=== PATIENT | female | born 1965 | race Caucasian/White ===

== ENCOUNTER 2017-11-05 19:22 | Inpatient (IN) | payer MEDICARE, MEDICAID ==
[2017-11-05 20:12] LABS: #Basophils 0.1 thou/uL (0.0-0.2); #Eosinphils 0.1 thou/uL (0.0-0.7); #Lymphocytes 2.8 thou/uL (1.20-3.40); #Monocytes 0.7 thou/uL (0.11-0.59); %Eosinophils 1.5 % (0.0-10.0); %Lymphocytes 28.4 % (21.0-51.0); %Monocytes 7.6 % (0.0-10.0); %Neutrophils 61.5 % (42.0-75.0); Hemoglobin 7.2 g/dL (12.0-16.0); Mean Corpuscular HGB CONC 32.8 g/dL (32.0-36.0); Mean Corpuscular Hemoglobin 33.3 pg (27.0-31.0); Mean Platelet Volume 9.9 fL (7.4-10.4); Platelet Count 207 thou/uL (130-400); RBC Distribution Width 13.7 % (11.5-14.5); Red Blood Cell (RBC) Count 2.17 mill/uL (4.20-5.40); White Blood Cell (WBC) Count 9.7 thou/uL (4.8-10.8)
--- NOTE | 2017-11-05 20:23 | RAD ---
FRONTAL VIEW CHEST: INDICATIONS: Syncope. COMPARISON: 07/12/2013 FINDINGS: The lungs are clear. There is no effusion or pneumothorax. The cardiac silhouette is normal in size for the portable technique. IMPRESSION: No focal consolidation. POS: [facility]
[2017-11-05 20:28] LABS: ALT (SGPT) 26 U/L (8-55); AST (SGOT) 20 U/L (5-34); Albumin 3.8 g/dL (3.5-5.0); Alkaline Phosphatase 62 U/L (40-150); Anion Gap 11 mmol/L (10-20); BUN (Urea Nitrogen) 9 mg/dL (9.8-20.1); Bilirubin, Total 0.6 mg/dL (0.2-1.2); Calc. Creatinine Clearance 0 mL/min (70-130); Carbon Dioxide 24 mmol/L (22-29); Chloride 108 mmol/L (98-107); Estimated GFR-MDRD 84; Globulin 2.4 g/dL (2.4-3.5); Glucose 134 mg/dL (70-105); Potassium 3.6 mmol/L (3.5-5.1); Protein, Total 6.2 g/dL (6.0-8.3); Sodium 139 mmol/L (136-145)
[2017-11-05 20:31] LABS: CKMB 0.8 ng/mL (0-6.6); Troponin I Less than 0.010 ng/mL (< 0.028)
[2017-11-05 20:41] LABS: INR-International Normal Ratio 1.2; PTT 24.7 SEC (22.9-36.1); Prothrombin Time 14.8 SEC (12.0-14.7)
[2017-11-05 21:02] LABS: Bilirubin Small (Negative); Blood, Urine Moderate (Negative); Clarity TURBID (Clear); Glucose, Urine (Dipstick) Negative (Negative); Leukocyte Large (Negative); Nitrite Negative (Negative); Protein, Urine (Dipstick) Trace mg/dL (Neg-Trace); Specific Gravity, Urine 1.021 (1.002-1.036); Urobilinogen 0.2 mg/dL (0.2-1.0); pH, Urine 5.5 (5.0-9.0)
[2017-11-05 21:04] LABS: Bacteria/HPF 4+ HPF (None Seen); Squamous Epithelial 0-3 HPF (0-3); Yeast-AUWi Flag 8.3 (0-25.0)
[2017-11-05 21:05] LABS: Pathc Cast-AUWi Flag 4.78 (0-2.49)
[2017-11-05 21:07] LABS: Hyaline Casts/LPF 0-3 HYALINE CAST LPF (0-3 Hyaline)
--- NOTE | 2017-11-05 21:44 | ULT ---
PELVIC ULTRASOUND: INDICATIONS: Vaginal bleeding. Pelvic pressure and pain. TECHNIQUE: Carlin-scale and Doppler color-flow imaging of the pelvis is performed. Transvaginal/transabdominal ultrasound. FINDINGS: There is a heterogeneous appearance of the endometrium, which is approximately 6 mm in thickness. As the patient reports no prior menses for four years, this is considered abnormal. The uterus demonst rates a generalized heterogeneous echotexture. The ovaries are not visualized. No significant free pelvic fluid. There is mild distention of the imaged portions of the urinary bladder. A focal region of increased echogenicity of the dependent portion of the urinary bladder is present. IMPRESSION: 1. Heterogeneous uterus and a thickened, heterogeneous endometrium. Recommend clinical correlation, as endometrial carcinoma is a diagnosis of exclusion. 2. Focal area of increased echogenicity of the mildly distended urinary bladder. This could relate to sediment within the urinary bladder, although the possibility of a soft tissue mass is not exclude d. Recommend followup with cystoscopy to exclude the possibility of an underlying bladder mass. CODE T POS: [facility]
--- NOTE | 2017-11-05 21:48 | RAD ---
LEFT FOREARM TWO VIEWS: HISTORY: Syncope. COMPARISON: None. FINDINGS: No fracture. No cortical irregularity or periosteal reaction. IMPRESSION: No fracture. POS: [facility]
--- NOTE | 2017-11-05 21:49 | RAD ---
LEFT HUMERUS TWO VIEWS: HISTORY: Syncope. COMPARISON: None. FINDINGS: No fracture. No cortical irregularity or periosteal reaction. IMPRESSION: No fracture. POS: [facility]
--- NOTE | 2017-11-05 21:52 | RAD ---
LEFT WRIST THREE VIEWS: HISTORY: Syncope. Pain. FINDINGS: Intercarpal and radial carpal joint spaces appear to be preserved. With regard to the carpal bones, there questionable irregularity involving the triquetral bone. Yenifer elate for point tenderness. IMPRESSION: Possible triquetral bone fracture. Correlate for point tenderness. POS: [facility]
--- NOTE | 2017-11-05 21:53 | RAD ---
LEFT ELBOW THREE VIEWS: HISTORY: Trauma. Syncope. FINDINGS: No significant joint effusion. No fracture. No cortical irregularity or periosteal reaction. IMPRESSION: No posttraumatic change. POS: [facility]
[2017-11-06] MEDS ORDERED: Acetaminophen 650 MG Suppository PR PRN (00:29)
[2017-11-06] MEDS ORDERED: Ondansetron ODT 4 MG TAB PO PRN (00:29)
[2017-11-06] MEDS ORDERED: Acetaminophen 325 MG TAB PO PRN (00:29)
[2017-11-06] MEDS ORDERED: Zolpidem Tartrate 5 MG TAB PO PRN (00:29)
[2017-11-06] MEDS: Tranexamic Acid 650 MG TAB PO SCH ×5 (00:57→19:55)
[2017-11-06] MEDS: Sodium Chloride 0.9% 1,000 ML IV SCH ×2 (00:58→09:31)
[2017-11-06] MEDS: medroxyPROGESTERone Acetate 5 MG TAB PO SCH ×4 (01:29→19:54)
--- NOTE | 2017-11-06 01:35 | HP ---
DATE OF ADMISSION: 11/05/2017 REASON FOR ADMISSION: Anemia secondary to dysfunctional uterine bleeding. HISTORY OF PRESENT ILLNESS: Ms. Javier is a 52-year-old 3, para 2, AB 1, who underwent a D a nd C by myself in September. She is morbidly obese, wheelchair bound with multiple sclerosis and had un remarkable hysteroscopy and benign pathology. However, post D and C, the patient is continued to ble ed. She was seen by myself at [facility] 4 days ago and started back on Provera at a dose of 20 mg b.i.d. She reports she has been taking this, but has continued to bleed. The patie nt is being referred to Dr. Alexandra Hull, Gynecologic Oncology at [facility] in [place] for hysterectomy, which was recommended by Dr. Hull as there is still some concern about occult malign jorge. The patient has not received an appointment from Dr. Hull yet. She reports that she became syn copal at home, fell out of her wheelchair and was transported by EMS. She denies chest pain, blurred vision or head trauma. [employer] HISTORY: Three pregnancies, 2 C-sections and 1 miscarriage. PAST MEDICAL HISTORY: Significant for multiple sclerosis, hypertension, overactive bladder, depressi on, migraines, obstructive sleep apnea and morbid obesity. PAST SURGICAL HISTORY: C-sections, gallstones, D and C with hysteroscopy. ALLERGIES: PENICILLIN, swelling and itching. MEDICATIONS: Include morphine, clonazepam, Lexapro, oxybutynin, calcium, ibuprofen, magnesium, nortr iptyline, Flonase, metoprolol, Colace, baclofen, Protonix and Provera. SOCIAL HISTORY: Denies tobacco, alcohol or IV drug abuse. FAMILY HISTORY: Noncontributory. REVIEW OF SYSTEMS: Noncontributory. PHYSICAL EXAMINATION: GENERAL: Morbidly obese white female, somewhat pale. VITAL SIGNS: Pulse 108, respirations 18, blood pressure 98/62, afebrile. HEENT: Within normal limits. LUNGS: Clear to auscultation bilaterally. HEART: Regular rhythm. ABDOMEN: Morbidly obese, soft, without rebound or guarding. Pelvic exam is deferred. Previous atte mpted pelvic exam had revealed the patient's cervix can only be visualized via speculum exam in the O R under general anesthesia. EXTREMITIES: Without clubbing, cyanosis or edema. On the perineum, there is no evidence that the bl eeding was rectal, not vaginal. IMAGING: Ultrasound in the office revealed a benign appearing uterus without endometrial mass or thi ckening. Ultrasound was canceled in the emergency room. Chest x-ray was negative. A 12-lead is pen ding and awaiting interpretation by emergency room physician. LABORATORY DATA: Hematocrit dropped from 35% on 09/24/2017 to 22% today with a hemoglobin of 7.2. T he patient does not have an elevated white count. Coags are within normal limits with slight elevati on of PT at 14.8. Metabolic panel is within normal limits. Her urinalysis reveals moderate blood, s mall bilirubin, large leukoesterase and greater than 50 wbc's. IMPRESSION: 1. Dysfunctional uterine bleeding of uncertain etiology with benign uterine pathology leading to acu te on chronic blood loss anemia. 2. Acute on chronic blood loss anemia. 3. Multiple sclerosis. 4. Obesity. 5. Deconditioning. 6. Urinary tract infection. 7. Hypertension. PLAN: The patient will be admitted to the hospital and receive blood transfusion. We will initiate Lysteda 1300 mg p.o. t.i.d. in combination with Provera 20 mg p.o. b.i.d. to achieve control of vagin al bleeding. We will consult [facility] for Internal Medicine issue management in the hospital. A nticipate the patient discharged home in 2 or 3 days with follow up with Dr. Alexandra Hull at [facility] in [place] for hysterectomy and definitive management of dysfunctional uterine bleeding .
[2017-11-06 03:11] VITALS: BMI 35.9
[2017-11-06] MEDS ORDERED: Cipro 250 MG TAB PO SCH (06:00)
[2017-11-06] MEDS: Baclofen 10 MG TAB PO SCH ×2 (07:24→19:53)
[2017-11-06] MEDS: Docusate 100 MG CAP PO SCH ×2 (07:25→19:55)
[2017-11-06] MEDS: Famotidine 20 MG TAB PO SCH ×2 (07:25→19:52)
--- NOTE | 2017-11-06 07:31 | PRG ---
DATE OF SERVICE: 11/06/2017 TIME OF SERVICE: 0700 The patient is resting comfortably in bed. She is receiving her second unit of PRBCs. By nursing bl eeding is down to level of mild to moderate. The patient is expressing interest in eating. PHYSICAL EXAMINATION: VITAL SIGNS: Temperature 97.8, respirations 18, pulse was 102. Blood pressure was 118/62. urine ou tput was good, clear urine was noted in the Giordano catheter. ABDOMEN: Soft and nontender, without rebound or guarding. EXTREMITIES: Without clubbing, cyanosis or edema. Of note, the patient has a stage I decubitus note d on admission. Wound Care will be consulted. IMPRESSION: 1. Dysfunctional uterine bleeding. 2. Acute anemia secondary to dysfunctional uterine bleeding. 3. Multiple medical conditions and deconditioning including multiple sclerosis, morbid obesity and h ypertension. 4. Stage I decubitus. PLAN: 1. Continue blood transfusion. 2. Continue Provera and Lysteda. 3. Check CBC at approximately noon today. 4. I will discuss the patient with Dr. Alexandra Hull at [facility] in [place]. Consider p ossible transfer to higher level of care for surgical management of her dysfunctional uterine bleedin g with suspected possible malignant or premalignant condition. 5. Decubitus care per Wound Care team. 6. Continue Cipro for UTI. Urine culture pending.
[2017-11-06] MEDS ORDERED: Oxybutynin 5 MG TAB PO SCH (09:00)
[2017-11-06] MEDS ORDERED: medroxyPROGESTERone Acetate 5 MG TAB PO SCH (09:00)
[2017-11-06] MEDS: Fluticasone Propionate Nasal Spray 16 gm Bottle NASAL SCH ×2 (09:18→19:55)
[2017-11-06 10:45] LABS: #Basophils 0.1 thou/uL (0.0-0.2); #Eosinphils 0.2 thou/uL (0.0-0.7); #Monocytes 0.5 thou/uL (0.11-0.59); #Neutrophils 4.1 thou/uL (1.40-6.50); %Basophils 0.7 % (0.0-1.0); %Eosinophils 2.7 % (0.0-10.0); %Monocytes 7.6 % (0.0-10.0); %Neutrophils 59.9 % (42.0-75.0); Hemoglobin 8.1 g/dL (12.0-16.0); Mean Corpuscular HGB CONC 31.6 g/dL (32.0-36.0); Mean Corpuscular Hemoglobin 30.2 pg (27.0-31.0); Mean Corpuscular Volume 95.7 fL (78.0-98.0); Mean Platelet Volume 9.9 fL (7.4-10.4); Platelet Count 125 thou/uL (130-400); RBC Distribution Width 15.3 % (11.5-14.5); Red Blood Cell (RBC) Count 2.66 mill/uL (4.20-5.40); White Blood Cell (WBC) Count 6.8 thou/uL (4.8-10.8)
--- NOTE | 2017-11-06 13:05 | PDOC.EVN ---
Event Note - Event Note Event Note: Transfer to Alexandra Hull arranged by Dr Rodgers for suspcicion for intrauterine (endometrial) malignancy vs other. Patent is s/p [address] Hull will be the workforce management consultant on the case. The transfer center has requested a physician to physician call, which I will do with the receiving site. DX: Multiple medical co-morbidities, suspicious endometrial mass vs other. HX negative D&C by Dr Rodgers one month ago
--- NOTE | 2017-11-06 14:03 | PDOC.PN ---
- Subjective Encounter Start Date: 11/06/17 Encounter Start Time: 14:01 Subjective: pt seen and examined/IM team consulted for medical management -: medical history reviewed w Pt -: currently feels well. No significant Vaginal bleed - Objective Resuscitation Status: Resuscitation Status FULL:Full Resuscitation MAR Reviewed: Yes Vital Signs & Weight: Vital Signs (12 hours) Temp Pulse Pulse Resp BP BP Pulse Ox 11/06/17 12:47 98.4 F 110 H 16 118/79 96 11/06/17 08:00 98.4 F 107 H 16 117/78 96 11/06/17 04:00 98.7 F 111 H 20 97/64 97 11/06/17 02:35 98.3 F 109 H 20 127/80 98 11/06/17 02:20 98.6 F 113 H 20 105/66 94 L Weight Admit Weight 196 lb 3 oz Weight 196 lb 3 oz I&O: 11/05/17 11/06/17 11/07/17 06:59 06:59 06:59 Intake Total 840 350 Output Total 750 Balance 90 350 Result Diagrams: 11/06/17 10:15 11/05/17 19:58 Additional Labs: Laboratory Tests 11/05/17 11/06/17 19:58 10:15 Hgb 7.2 L 8.1 L Phys Exam - Physical Examination Constitutional: NAD HEENT: PERRLA, moist MMs, sclera anicteric, oral pharynx no lesions Neck: no nodes, no JVD, supple, full ROM Respiratory: no wheezing, no rales, no rhonchi, clear to auscultation bilateral Cardiovascular: RRR, no significant murmur, no rub, irregular Gastrointestinal: soft, non-tender, no distention, positive bowel sounds Musculoskeletal: no edema, pulses present Neurological: non-focal, normal sensation chr paraparesis due to MS Psychiatric: normal affect, A&O x 3 Dx/Plan (1) Acute blood loss anemia Code(s): D62 - ACUTE POSTHEMORRHAGIC ANEMIA Status: Acute (2) UTI (urinary tract infection) Status: Acute Qualifiers: Urinary tract infection type: acute cystitis (3) DUB (dysfunctional uterine bleeding) Code(s): N93.8 - OTHER SPECIFIED ABNORMAL UTERINE AND VAGINAL BLEEDING Status : Acute Comment: Cont provera,Lysteda. (4) HTN (hypertension) Code(s): I10 - ESSENTIAL (PRIMARY) HYPERTENSION Status: Chronic (5) Multiple sclerosis Code(s): G35 - MULTIPLE SCLEROSIS Status: Chronic - Plan continue antibiotics, DVT proph w/SCDs Agree w transfer to tertiary center for higher level of care -: Increase Cipro dose for UTI. urine Cx sent.follow -: Recommend Urology input for possible Bladder mass. -: H/h stable post transfusion. recheck in am if in house -: home meds rebviewed. cont as below. HD stable.Will follow * . Review of Systems - Review of Systems Constitutional: weakness, malaise. negative: fever, chills, sweats, other ENT: negative: Ear Pain, Ear Discharge, Nose Pain, Nose Discharge, Nose Congestion, Mouth Pain, Mouth Swelling, Throat Pain, Throat Swelling, Other Respiratory: negative: Cough, Dry, Shortness of Breath, Hemoptysis, SOB with Excertion, Pleuritic Pain, Sputum, Wheezing Cardiovascular: negative: chest pain, palpitations, orthopnea, paroxysmal nocturnal dyspnea, edema, light headedness, other Gastrointestinal: negative: Nausea, Vomiting, Abdominal Pain, Diarrhea, Constipation, Melena, Hematochezia, Other Genitourinary: negative: Dysuria, Frequency, Incontinence, Hematuria, Retention , Other Musculoskeletal: negative: Neck Pain, Shoulder Pain, Arm Pain, Back Pain, Hand Pain, Leg Pain, Foot Pain, Other Neurological: negative: Weakness, Numbness, Incoordination, Change in Speech, Confusion, Seizures, Other - Medications/Allergies Allergies/Adverse Reactions: Allergies Allergy/AdvReac Type Severity Reaction Status Date / Time glatiramer (copolymer 1) Allergy Severe Anaphylaxis Verified 09/21/17 11:03 [From Copaxone] Penicillins Allergy Intermediate FACIAL Verified 09/21/17 11:03 SWELLING Latex, Natural Rubber Allergy Verified 11/06/17 03:11 Medications: Current Medications Acetaminophen (Tylenol) 650 mg PO Q4H PRN PRN Reason: Headache/Fever or Pain Acetaminophen (Tylenol) 650 mg UT Q4H PRN PRN Reason: Headache/Fever or Pain Baclofen (Lioresal) 20 mg PO BID [facility] Last Admin: 11/06/17 07:24 Dose: 20 mg Ciprofloxacin (Cipro) 500 mg PO 0600,2000 RADHA Clonazepam (Klonopin) 1 mg PO HS [facility] Docusate Sodium (Colace) 100 mg PO BID [facility] Last Admin: 11/06/17 07:25 Dose: 100 mg Escitalopram Oxalate (Lexapro) 20 mg PO HS [facility] Famotidine (Pepcid) 20 mg PO BID [facility] Last Admin: 11/06/17 07:25 Dose: 20 mg Fluticasone Propionate (Flonase Nasal [place]) 1 gm NASAL BID [facility] Last Admin: 11/06/17 09:18 Dose: Not Given Sodium Chloride (Normal Saline 0.9%) 1,000 mls @ 100 mls/hr IV .Q10H [facility] Last Admin: 11/06/17 09:31 Dose: Not Given Medroxyprogesterone Acetate (Provera) 20 mg PO BID [facility] Last Admin: 11/06/17 07:26 Dose: 20 mg Metoprolol Succinate (Toprol Xl) 25 mg PO [facility] Nortriptyline HCl (Pamelor) 25 mg PO [facility] Ondansetron HCl (Zofran Odt) 4 mg PO Q6H PRN PRN Reason: Nausea/Vomiting Oxybutynin Chloride (Ditropan) 5 mg PO DAILY [facility] Last Admin: 11/06/17 07:25 Dose: 5 mg Tranexamic Acid (Lysteda) 1,300 mg PO TID [facility] Last Admin: 11/06/17 07:25 Dose: 1,300 mg Triamcinolone Acetonide (Kenalog 0.5% Cream) 0 gm TOP DAILYPRN PRN PRN Reason: DERMATITIS Zolpidem Tartrate (Ambien) 5 mg PO HSPRN PRN PRN Reason: Insomnia
[2017-11-06 15:21] LABS: #Basophils 0.1 thou/uL (0.0-0.2); #Eosinphils 0.3 thou/uL (0.0-0.7); #Lymphocytes 2.4 thou/uL (1.20-3.40); #Monocytes 0.6 thou/uL (0.11-0.59); #Neutrophils 4.4 thou/uL (1.40-6.50); %Basophils 0.8 % (0.0-1.0); %Eosinophils 3.3 % (0.0-10.0); %Lymphocytes 31.4 % (21.0-51.0); %Monocytes 7.3 % (0.0-10.0); %Neutrophils 57.1 % (42.0-75.0); Hemoglobin 9.2 g/dL (12.0-16.0); Mean Corpuscular HGB CONC 33.9 g/dL (32.0-36.0); Mean Corpuscular Hemoglobin 32.2 pg (27.0-31.0); Platelet Count 141 thou/uL (130-400); RBC Distribution Width 15.8 % (11.5-14.5); Red Blood Cell (RBC) Count 2.86 mill/uL (4.20-5.40); White Blood Cell (WBC) Count 7.7 thou/uL (4.8-10.8)
[2017-11-06 19:45] VITALS: BP 108/80; TEMP 98.8
[2017-11-06] MEDS ORDERED: Ciprofloxacin 500 MG TAB PO SCH (20:00)
[2017-11-06] MEDS ORDERED: clonazePAM 1 MG TAB PO SCH (21:00)
[2017-11-06] MEDS ORDERED: Escitalopram Oxalate 20 mg Tablet PO SCH (21:00)
[2017-11-06] MEDS ORDERED: Nortriptyline HCl 25 MG CAP PO SCH (21:00)
== END 2017-11-06 20:40 | disposition short-term general hospital (02) | DRG 760 ==
LOC: ERS 19:22 → T4-B 21:30
PROVIDERS: ADMIT Obstetrics & Gynecology; ATTEND Obstetrics & Gynecology
PROC: 30233N1 Transfusion of Nonautologous Red Blood Cells into Peripheral Vein, Percutaneous Approach (ICD-10-PCS; principal; 2017-11-05)
DX: N93.8 Other specified abnormal uterine and vaginal bleeding (principal); N39.0 Urinary tract infection, site not specified; D62 Acute posthemorrhagic anemia; D50.0 Iron deficiency anemia secondary to blood loss (chronic); E66.01 Morbid (severe) obesity due to excess calories; Z99.3 Dependence on wheelchair; G35 Multiple sclerosis; I10 Essential (primary) hypertension; F32.9 Major depressive disorder, single episode, unspecified; G47.33 Obstructive sleep apnea (adult) (pediatric); L89.91 Pressure ulcer of unspecified site, stage 1
CPT/HCPCS: 36415; 36430; 71045; 76856; 80053; 81003; 81015; 82553; 83735; 83880; 84484; 85025; 85610; 85730; 86850; 86900; 86901; 87077; 87086; 87186; 90471; 90686; 93005; A4353; G0008; J1956; P9016

== ENCOUNTER 2018-10-03 08:58 | Outpatient (CLI) | payer MEDICARE, MEDICAID ==
--- NOTE | 2018-10-03 13:07 | MRI ---
Brain MRI with and without contrast: 10/03/2018 COMPARISON: 11/16/2014 HISTORY: Multiple sclerosis TECHNIQUE: Multiplanar multisequence MR imaging of the brain is obtained with and without contrast FINDINGS: There are numerous subcentimeter foci of increased T2 and FLAIR signal within the periventr icular, deep, and subcortical white matter, consistent with the patient's history of multiple sclerosis. There has been no significant interval change on the axial T2 or FLAIR imaging with regard to the white matter disease. Arterial flow voids at the axial level of the skull base appear grossly unremarkable on the T2-weight ed imaging. The visualized paranasal sinuses and mastoid air cells are well aerated. There is no midline shift, mass effect, or ventricular enlargement. The diffusion weighted imaging demonstrates no evidence for acute infarction. The axial gradient echo imaging demonstrates no evidence for intracranial hemorrhage. Postcontrast imaging demonstrates no abnormal enhancement within the brain parenchyma. IMPRESSION: Stable white matter disease consistent with the provided history of multiple sclerosis. N o enhancing lesions are seen to suggest the presence of active demyelination. Transcribed Date/Time: 10/03/2018 2:43 PM
--- NOTE | 2018-10-03 13:43 | MRI ---
MRI of the cervical spine with and without contrast: 10/03/2018 COMPARISON: None HISTORY: Multiple sclerosis TECHNIQUE: Multiplanar multisequence MR imaging of the cervical spine provided with and without contr ast FINDINGS: Sagittal STIR imaging demonstrates no focal area of osseous marrow edema. There is fluid in the region of the left facet joint at C5-6, degenerative in nature. There is degenerative change at the atlantoaxial interspace. No significant anterolisthesis or retrol isthesis is noted within the cervical spine. C2-3: Mild bilateral facet hypertrophy. Uncovertebral osteophyte formation noted on the left with mil d/moderate left neural foraminal stenosis. No significant central canal or right neural foraminal stenosis. C3-4: Disc space narrowing and disc desiccation. Facet and uncovertebral osteophyte formation on the left causes a moderate degree of neural foraminal stenosis. There is mild right neural foraminal stenosis. No significant central canal stenosis. C4-5: There is mild bilateral facet hypertrophy. There is disc desiccation. No significant central ca nal or neural foraminal stenosis. C5-6: There is disc space narrowing and disc desiccation with disc bulge. There is a prominent left p aracentral disc protrusion with significant canal stenosis laterally on the left. There is mild/moderate bilateral neural foraminal stenosis, left greater than right. C6-7: There is disc space narrowing and disc desiccation with mild disc bulge and mild central canal stenosis. Bilateral facet and uncovertebral osteophyte formation with mild/moderate bilateral neural foraminal stenosis. C7-T1: No significant central canal or neural foraminal stenosis. There are numerous areas of abnormal increased T2 signal within the cervical cord, consistent with de myelination on the basis of multiple sclerosis. There is abnormal signal intensity within the dorsal aspect of the mid cervical cord at the C1 level. There is increased signal intensity within th e lateral aspect of the cord to the left of midline at C3. Multiple small foci of abnormal signal intensity noted within the cervical cord at the C4 and C5 levels. Lateral T2 hyperintensity on the ri ght within the cervical cord at C5. The postcontrast imaging demonstrates no abnormal enhancement involving the cervical cord to suggest the presence of active demyelination. No abnormal enhancement is seen involving the imaged osseous structures or intervertebral disks. IMPRESSION: Multilevel cervical spine degenerative change. Evidence of abnormal T2 hyperintensity wit hin the cervical cord, consistent with demyelination. No abnormal enhancement is seen to suggest the presence of active demyelination. Transcribed Date/Time: 10/03/2018 2:41 PM
--- NOTE | 2018-10-03 13:48 | MRI ---
MRI of the thoracic spine with and without contrast: 10/03/2018 COMPARISON: None HISTORY: Multiple sclerosis TECHNIQUE: Multiplanar multisequence MR imaging of the thoracic spine obtained with and without contr ast FINDINGS: The sagittal STIR imaging demonstrates no focal area of osseous marrow edema. No anterolisthesis or retrolisthesis is evident within the thoracic spine. There is no significant central canal or neural foraminal stenosis noted within the thoracic spine. There is a tiny central disc protrusion at T3-4 with no associated central canal stenosis. There is a small right paracentral disc protrusion at T9-10 with no associated central canal stenosis. There is a subtle area of increased T2 signal intensity within the dorsal aspect of the thoracic cord at T8-9. There is a questionable subtle area of abnormal signal intensity within the central aspect of the cord and right aspect of the cord at T4-5. The postcontrast imaging demonstrates no abn ormal enhancement involving the contents of the thecal sac, the osseous structures, or the intervertebral discs. IMPRESSION: No significant central canal or neural foraminal stenosis seen within the thoracic spine. Questionabl e subtle abnormal signal intensity within the thoracic cord as detailed above. No abnormal enhancement seen to suggest the presence of active demyelination. Transcribed Date/Time: 10/03/2018 2:32 PM
--- NOTE | 2018-10-03 14:12 | MRI ---
Exam: MRI lumbar spine with and without contrast HISTORY: Multiple sclerosis. COMPARISON: None FINDINGS: Appropriate T1 marrow signal intensity of the lumbar vertebra. Lumbar spine vertebral body height is maintained. No fracture. No spondylolisthesis. No spondylolysis. No abnormal enhancement on post contrast images. Appropriate signal intensity of the paraspinal muscles Conus medullaris terminates at the inferior aspect of L1 T12-L1: No significant central canal stenosis or significant foraminal narrowing. L1-L2: No significant canal stenosis or significant foraminal narrowing L2-L3: No significant canal stenosis or significant foraminal narrowing L3-L4: No significant central canal stenosis or significant foraminal narrowing. Minimal ligament fla vum thickening and facet hypertrophy. L4-L5: Adequate disc hydration. No significant central canal stenosis or significant foraminal narrow ing L5-S1: Desiccation without significant loss of disc space height. Generalized disc bulge does not cau se any mass effect upon the thecal sac. There is left greater than right facet hypertrophy. Moderate bilateral foraminal disc material and posterior element hypertrophy. There is no abnormal enhancement with regards to the cauda equina and conus medullaris IMPRESSION: 1. No abnormal enhancement within the central spinal canal 2. No significant central canal stenosis. Moderate bilateral foraminal and L5-S1 Transcribed Date/Time: 10/03/2018 2:34 PM
== END 2018-10-03 08:59 | disposition home or self-care (01) ==
LOC: MRI 08:58
PROVIDERS: ATTEND Nurse Practitioner Acute Care
DX: G35 Multiple sclerosis (principal); M47.812 Spondylosis without myelopathy or radiculopathy, cervical region
CPT/HCPCS: 70553; 72156; 72157; 72158

== ENCOUNTER 2019-11-06 11:58 | Outpatient (CLI) | payer MEDICARE, MEDICAID ==
--- NOTE | 2019-11-06 18:02 | MRI ---
BRAIN MRI WITH AND WITHOUT CONTRAST: COMPARISON: 10/03/2018. HISTORY: Multiple sclerosis. FINDINGS: No evidence of hemorrhage on the axial gradient echo sequence. Appropriate T1 marrow signal intensity of the calvarium. Midline brain parenchymal structures have a normal appearance. No parenchymal mass, mass effect, or midline shift. Age-appropriate brain volume. Redemonstration o f T2 and FLAIR white matter hyperintensities consistent with the patient's history of multiple sclero sis. There are stable T2 and FLAIR hyperintensities involving the medial left frontal cortex. The o verall degree and distribution of the abnormal white matter hyperintensities, is unchanged. Central arterial flow voids are maintained. Absent restricted diffusion. Adequate aeration of the visualized paranasal sinuses and mastoid air cells. No pathologic enhancement of the brain parenchyma. No MRI evidence of an actively demyelinating plaque. IMPRESSION: Essentially stable multifocal T2 and FLAIR white matter hyperintensities. Distribution is consistent with the patient's history of multiple sclerosis. There are no plaques that have enhancement or res tricted diffusion to suggest an active demyelinating plaque. POS: [facility]
--- NOTE | 2019-11-06 18:10 | MRI ---
MRI CERVICAL SPINE WITH AND WITHOUT CONTRAST: COMPARISON: 10/03/2018. HISTORY: Multiple sclerosis. FINDINGS: Appropriate T1 marrow signal intensity of the cervical vertebrae. Vertebral body heights are maintai silke. There is no fracture. Stable type II Modic change at C6-C7. There is osteophyte formation at C5-C6 and C6-C7. Post contrast images demonstrate a partially enhancing hemangioma at T1, unchanged. No pathologic enhancement of the vertebral bodies. There is no significant STIR hyperintensity to suggest vertebral body edema or ligamentous injury. There is straightening of cervical lordosis. Spondylolisthesis: 1 mm of anterolisthesis of C4 upon C5. 1.2 mm of anterolisthesis of C5 upon C6. C2-C3: No significant central canal stenosis. Mild to moderate right foraminal narrowing due to unc overtebral and facet hypertrophy. Severe left foraminal narrowing due to uncovertebral hypertrophy. Degree of left foraminal stenosis is unchanged. C3-C4: Desiccation with mild loss of disk space height. Broad-based disk-osteophyte complex with mi ld central canal stenosis. Moderate to severe bilateral neural foraminal narrowing due to uncoverteb ral hypertrophy. C4-C5: Desiccation with mild loss of disk space height. Broad-based disk-osteophyte complex abuts t he thecal sac. Mild central canal stenosis. Moderate right neural foraminal narrowing. Patent left neural foramen. C5-C6: Desiccation with moderate to severe loss of disk space height. Redemonstration of a central/ left paracentral disk-osteophyte complex. There is mass effect upon the left hemicord. At least mil d to moderate stenosis of the left aspect of the central spinal canal. Mild bilateral neural foramin al narrowing. C6-C7: Disk desiccation. Broad-based disk-osteophyte complex. Mild central canal stenosis. Mild r ight neural foraminal narrowing. Patent neural foramen. C7-T1: No significant central canal stenosis. Neural foramina are patent. There are T2 hyperintensities involving the cervical cord at the C2-C3 disk space, C3 vertebral body, C4 vertebral body, C4-C5 disk space, and the mid C7 level. There is no cord expansion or cord malac ia. Post contrast images do not demonstrate abnormal enhancement. There is evidence of a T2 hyperin tense lesion in the thoracic cord at the T1 level. IMPRESSION: Multifocal abnormal signal intensity in the cervical cord compatible with demyelinating plaques. No evidence of enhancement to suggest active demyelination. POS: [facility]
--- NOTE | 2019-11-06 18:41 | MRI ---
MRI OF THE THORACAIC SPINE WITH AND WITHOUT IV CONTRAST: Date: 11/06/2019 INDICATION: History of multiple sclerosis. COMPARISON: Prior MRI of the thoracic spine with and without contrast dated 10/03/2018. TECHNIQUE: Multiplanar, multisequence MR images were obtained of the thoracic spine with and without contrast ut ilizing 15 mL of MultiHance. FINDINGS: The degree of motion artifact particularly on the postcontrast series limits image detail. There is a T2 hyperintense, heterogeneous T1 signal intensity oval lesion within the left aspect of T 1 which demonstrates a stippled trabecular appearance on the axial images with mild postcontrast enha ncement that is stable to the prior exam, likely reflecting slightly atypical hemangioma. The subtle area of suggested increased T2 signal along the dorsal aspect of the spinal cord at T8-T9 on the prior examination is not replicated on the current examination. There is a very small focus of white matter signal abnormality in the anterior midline spinal cord th at is seen on image 44 of series 11 which may be artifactual in nature. No definite region of abnorma l enhancement is noted within this region. This is seen at the T9 vertebral level. Small right paracentral protrusions at T9-T10, T10-T11, and T11-T12 are stable. No appreciable centra l canal or neural foraminal narrowing is evident. No additional focus of abnormal enhancement is demo nstrated. IMPRESSION: 1. Small subtle regions of T2 hyperintensity suspected at the T8-T9 level along the dorsal aspect of the thoracic cord is not reproduced on the current examination. However, there is a new focus of inc reased T2 signal involving the anterior aspect of the spinal cord at T9, which was not definitely pre sent on the prior examination. No abnormal enhancement is seen within this location. This may reflect a interval new but not necessarily active MS plaque. 2. Mild spondylosis of the thoracic spine without appreciable central canal or neural foraminal narr owing. 3. Persistent suspected atypical hemangioma within the left aspect of T1. POS: [facility]
== END 2019-11-06 11:59 | disposition home or self-care (01) ==
LOC: MRI 11:58
PROVIDERS: ATTEND Nurse Practitioner Acute Care
DX: G35 Multiple sclerosis (principal); M47.814 Spondylosis without myelopathy or radiculopathy, thoracic region
CPT/HCPCS: 70553; 72156; 72157